=== PATIENT | male | born 1975 | race African-American/Black ===

== ENCOUNTER 2016-10-10 00:03 | Emergency (ER) | payer OTHER ==
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
== END 2016-10-10 01:08 | disposition home or self-care (01) ==
LOC: SED 00:03
DX: S63.501A Unspecified sprain of right wrist, initial encounter (principal); S93.401A Sprain of unspecified ligament of right ankle, initial encounter; S16.1XXA Strain of muscle, fascia and tendon at neck level, initial encounter; S39.012A Strain of muscle, fascia and tendon of lower back, initial encounter; S80.01XA Contusion of right knee, initial encounter; V49.40XA Driver injured in collision with unspecified motor vehicles in traffic accident, initial encounter; Y93.89 Activity, other specified; Y92.410 Unspecified street and highway as the place of occurrence of the external cause
CPT/HCPCS: 72040; 72100; 73110; 73562; 73610; 99284